=== PATIENT | female | born 1950 | race African-American/Black ===

== ENCOUNTER 2017-03-10 12:55 | Emergency (ER) | payer MEDICARE, MEDICAID ==
[~2017-03-10] VITALS: Ht 165.1 cm; Wt 62.0 kg
[2017-03-10] MEDS ORDERED: ATEN-42 PO (13:02)
[2017-03-10] MEDS ORDERED: SODIUM CHLORIDE 0.9% 500 ML IV ONE (13:21)
[2017-03-10 15:06] LABS: CHLORIDE 106 mEq/L (98-107)
[2017-03-10 15:11] LABS: PARTIAL THROMBOPLASTIN TIME 22.8 sec (23.4-31.0); PROTHROMBIN TIME 10.7 sec (9.4-11.6)
[2017-03-10 15:13] LABS: BASOPHILS % 1.3 % (0.0-2.0); HEMATOCRIT. 40.9 % (36.0-48.0); HEMOGLOBIN. 13.8 g/dL (12.0-16.0); LYMPHOCYTES % 12.1 % (20.0-50.0); MEAN CORPUSCULAR HEMOGLOBIN 29.2 pg (28.0-32.0); MEAN CORPUSCULAR VOLUME 86.1 fL (81.0-99.0); MEAN PLATELET VOLUME 8.2 fl (7.4-10.4); MONOCYTES % 10.2 % (2.0-8.0); NEUTROPHILS % 74.4 % (40.0-76.0); PLATELET 301 x1000/uL (130-400); RED BLOOD CELL COUNT 4.74 mill/uL (4.2-5.4); RED CELL DISTRIBUTION WIDTH 18.3 % (11.6-14.6)
[2017-03-10 15:18] LABS: CARBON DIOXIDE 28 mEq/L (21-32); PHOSPHORUS 2.8 mg/dL (2.5-4.9); TROPONIN I < 0.02 ng/mL (0.00-0.04)
[2017-03-10] MEDS ORDERED: MAGNESIUM 2 G PREMIX 50 ML IV ONE (15:30)
[2017-03-10 15:37] LABS: CLARITY URINE CLEAR (CLEAR); COLOR URINE DARK YELLOW (YELLOW); GLUCOSE URINE NEGATIVE (NEGATIVE); KETONES URINE TRACE (NEGATIVE); LEUKOCYTE ESTERASE URINE 3+ (NEGATIVE); NITRITE URINE NEGATIVE (NEGATIVE); OCCULT BLOOD URINE NEGATIVE (NEGATIVE); PROTEIN URINE 1+ (NEGATIVE)
[2017-03-10 16:06] LABS: *AMPHETAMINES SCREEN URINE NEGATIVE (NEGATIVE); *BARBITURATES SCREEN URINE NEGATIVE (NEGATIVE); *BENZODIAZEPINES SCREEN URINE NEGATIVE (NEGATIVE); *COCAINE SCREEN URINE NEGATIVE (NEGATIVE); CANNABINOID URINE SCREEN NEGATIVE (NEGATIVE); METHADONE URINE SCREEN NEGATIVE (NEGATIVE); OPIATES URINE SCREEN NEGATIVE (NEGATIVE); PHENCYCLIDINE URINE SCREEN NEGATIVE (NEGATIVE)
[2017-03-10] MEDS ORDERED: CEFTRIAXONE 1 G PREMIX 50 ML IV ONE (16:15)
[2017-03-10 18:17] VITALS: BP 134/83
== END 2017-03-10 18:19 | disposition home or self-care (01) ==
LOC: ER 13:04
DX: N39.0 Urinary tract infection, site not specified (principal); E83.42 Hypomagnesemia; I10 Essential (primary) hypertension
CPT/HCPCS: 36415; 70450; 71010; 80053; 80305; 81001; 83690; 83735; 84100; 84484; 85025; 85610; 85730; 93005; 96361; 96365; 96366; 96368; 99285; G0482; J0696; J3475; J7040